=== PATIENT | female | born 1945 | race Caucasian/White ===

== ENCOUNTER 2016-10-05 16:10 | Emergency (ER) | payer MEDICARE ==
[~2016-10-05] VITALS: Ht 182.9 cm; Wt 95.5 kg
[~2016-10-05 16:10] MED LIST: ACET325T51 PO; CHOL100045 PO; ENOX40DI8 SUBQ; FLUO20CA25 PO; NABU500T PO; OMEP20CA11 PO; OXYC1TAB24 PO
[2016-10-05 16:22] VITALS: BP 156/82; PULSE 70; RESP 20; O2SAT 97
--- NOTE | 2016-10-05 18:42 | ED.REPORT ---
HPI-Extremity Problem Upper Date of Service Oct 05, 2016 ED Provider: Doc,Ed MD History of Present Illness: clawed by a dog todayaround 3 pm at home tdap up to date. primary care is [facility]. dog is her bhavins dog Nursing Notes Stated Complaint: TEAR ON LEFT HAND BY DOG CLAW Chief Complaint: Laceration Nursing Notes Reviewed: Yes Allergies: Coded Allergies: Sulfa (Sulfonamide Antibiotics) (Verified Allergy, Unknown, 03/06/16) Scheduled Cholecalciferol (Vitamin D3) (Vitamin D) 1,000 Unit Capsule 3,000 UNIT PO DAILY Enoxaparin Sodium (Enoxaparin Sodium) 40 Mg/0.4 Ml Syringe 40 MG SUBQ DAILY Fluoxetine (Fluoxetine) 20 Mg Capsule 20 MG PO DAILY Nabumetone (Nabumetone) 500 Mg Tablet 500 MG PO BID Omeprazole (Omeprazole) 20 Mg Capsule.dr 20 MG PO BID Scheduled PRN Acetaminophen (Acetaminophen) 325 Mg Tablet 500 MG PO HS PRN PRN daily oxyCODONE-Acetaminophen 5-325 mg (oxyCODONE-Acetaminophen 5-325 mg) 1 Each Tablet 1-2 TAB PO Q4H PRN PRN For Severe Pain General Time Seen by MD: 18:41 Chief Complaint Wrist injury left Hx Obtained From: Patient Onset Occurred: 1 - 4 hours ago Symptom Duration: Since onset Past Medical History Past Medical History Notes: PCP: Oleg John Past Medical History depression arthritis Past Surgical History Reports: Hysterectomy Smoking History Never Smoker Social History Alcohol Use: "Social" Drug Use: Denies drug use Occupation lives with partner, retired 10/05/2016 Ambulatory Status Independent Review of Systems Basic Review of Systems Eyes: Vision NL, No discharge ENT: Hearing NL, No pain, No nasal congestion, No pharyngeal pain Respiratory: No shortness of breath, No cough, No wheeze Cardiovascular: No chest pain, No dyspnea on exertion, No orthopnea, No parox noct dyspnea, No palpitations GI: No abdominal pain, No anorexia, No nausea, No vomiting : No dysuria, No frequency Hematologic: No bleeding, No bruising Endocrine: No cold intolerance, No heat intolerance, No weight gain, No weight loss Allergy / Immune: No allergy Psychiatric: Normal thought content Physical Exam Initial Vital Signs Vital Signs (First) Date Time Temp Pulse Resp B/P Pulse Ox O2 Delivery O2 Flow Rate FiO2 10/05/16 16:22 37.1 70 20 156/82 97 Room Air Initial VS: Reviewed, Vital signs normal General/Constitutional: Well-developed, Well-nourished Head / Eyes: Atraumatic, Normocephalic, PERRL ENT: Mucous membranes moist, Conjunctiva normal, No scleral icterus Neck: Supple, Non-tender, Full range of motion Respiratory: Breath sounds normal, Clear to auscultation, No respiratory distress Cardiovascular: Regular rate & rhythm, Heart sounds normal, Intact distal pulses Abdomen / GI: Soft, Non-tender, No guarding, No rebound, No distention Back: No CVA tenderness Lymphatic: No lymphadenopathy Lower Extremities: Vascular intact, Neuro intact, No swelling, No tenderness Skin: Warm, Dry, No cyanosis Neurologic: Alert, Oriented, Nonfocal Psychiatric: Mood/affect normal, Behavior normal, Normal thought content General/Constitutional: Awake, Alert, No acute distress, Well appearing, Well developed, Well hydrated Respiratory / Chest: Atraumatic, Breath sounds NL, Breath sounds = bilat Cardiovascular: Heart rate NL, Regular rhythm, Heart sounds NL, No gallop Upper Extremity / MS: Atraumatic, Inspection NL, Full range of motion left hand has laceration on dorsal aspect Procedures Laceration Management Time: 19:00 Procedure Performed by: Allied health pract Consent / Setup / Site Prep: Informed consent provided, Consent from patient , Hand hygiene observed, Stand sterile technique Location of Wound: left dorsal hand Wound Length: 2 cm Local Anesthesia: Lidocaine 1%, 5cc, 27g needle Digital Block: No Wound Preparation: Normal saline Debridement: None Irrigation: 250 cc Repair Skin: ___ O (5), Nylon # Sutures - Skin: 6 Suture Technique: Simple Post-Procedure / Complications: Antibiotic oint applied, Dressing applied, No complications, Condition improved, Tolerated procedure well, Patient stable Discharge & Departure Impression: Primary Impression: Laceration Additional Impression: Home accident Disposition: Home Patient Instructions: Laceration (ED) Additional Instructions: The wound was extensively washed. It has been repaired with 6 sutures. Apply bacitracin to the site daily. Keep dry for 24 hours. It is OK to get wet after that but briefly. Start keflex 500 mg 3 times a day for 7 days. Sutures out in 12 to 14 days. REturn to the ER for any redness or sign of infection. The sutures can come out here or with primary care. Referrals: OTHER,PHYSICIAN (PCP) EDSupervising Provider for APC: Judith Valladares MD, Sue ARNP Oct 05, 2016 18:41
== END 2016-10-05 19:24 | disposition home or self-care (01) ==
LOC: SED 16:10
DX: S61.412A Laceration without foreign body of left hand, initial encounter (principal); W54.8XXA Other contact with dog, initial encounter; Y92.009 Unspecified place in unspecified non-institutional (private) residence as the place of occurrence of the external cause; Y93.89 Activity, other specified; Y99.8 Other external cause status; I10 Essential (primary) hypertension; Z88.2 Allergy status to sulfonamides